=== PATIENT | female | born 1995 | race Caucasian/White ===

== ENCOUNTER 2025-07-21 20:32 | Emergency (ER) | payer BC, OTHER ==
[2025-07-21 21:24] LABS: #Basophils 0.1 thou/uL (0.0-0.2); #Eosinophils 0.1 thou/uL (0.0-0.7); #Lymphocytes 1.0 thou/uL (1.20-3.40); #Monocytes 0.2 thou/uL (0.11-0.59); #Neutrophils 5.3 thou/uL (1.40-6.50); %Basophils 1.0 % (0.0-1.0); %Eosinophils 2.2 % (0.0-10.0); %Lymphocytes 15.0 % (21.0-51.0); %Monocytes 3.6 % (0.0-10.0); %Neutrophils 78.2 % (42.0-75.0); Hematocrit 42.4 % (36.0-47.0); Hemoglobin 13.6 g/dL (12.0-16.0); Mean Corpuscular Hemoglobin 26.2 pg (27.0-31.0); Mean Corpuscular Volume 81.9 fl (78.0-98.0); Platelet Count 288 10x3/uL (130-400); Red Blood Cell (RBC) Count 5.18 mill/uL (4.20-5.40); White Blood Cell (WBC) Count 6.8 10x3/uL (4.8-10.8)
[2025-07-21 21:31] LABS: INR-International Normal Ratio 1.0; Prothrombin Time 13.1 sec (12.0-14.7)
[2025-07-21 21:32] LABS: PTT 30.3 sec (22.9-36.1)
[2025-07-21 21:40] LABS: ALT (SGPT) 31 U/L (Less than 34); AST (SGOT) 27 U/L (11-34); Albumin 4.0 g/dL (3.1-4.5); Alkaline Phosphatase 75 U/L (40-110); Anion Gap 17 mmol/L (10-20); BUN (Urea Nitrogen) 15 mg/dL (7.0-18.7); Bilirubin, Total 0.6 mg/dL (0.3-1.2); Calc. Creatinine Clearance 0 mL/min (70-130); Calcium 8.3 mg/dL (7.8-10.44); Carbon Dioxide 20 mmol/L (22-29); Chloride 105 mmol/L (98-107); Globulin 3.2 g/dL (2.4-3.5); Glucose 107 mg/dL (70-105); Potassium 3.8 mmol/L (3.5-5.1); Sodium 138 mmol/L (136-145)
== END 2025-07-21 21:30 | disposition short-term general hospital (02) ==
LOC: BURERS 20:32
DX: M79.604 Pain in right leg (principal); E03.9 Hypothyroidism, unspecified; Z79.890 Hormone replacement therapy
CPT/HCPCS: 36415; 80053; 85025; 85610; 85730; 99284